=== PATIENT | male | born 1955 | race Caucasian/White ===

== ENCOUNTER 2016-11-08 07:36 | Emergency (ER) | payer OTHER ==
[~2016-11-08] VITALS: Ht 176.5 cm; Wt 135.0 kg
[~2016-11-08 07:36] MED LIST: ASA325 PO; ASCO125T PO; FURO20TA PO; MULT-1007 PO; ZES20T PO
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
[2016-11-08 08:00] LABS: BASOPHILS % (AUTO) 0.8 % (0-3); EOSINOPHILS % (AUTO) 1.7 % (0-5); MONOCYTES % (AUTO) 6.9 % (4-12); Mean Corpuscular Hemoglobin 29.3 pg (27.0-35.0); Mean Corpuscular Volume 85.1 fL (81-100); NEUTROPHILS % (AUTO) 60.5 % (40-74); Platelet Count 184 bil/L (150-400)
[2016-11-08 08:05] VITALS: BP 121/71; PULSE 77; RESP 24; O2SAT 95
[2016-11-08 08:17] LABS: INR 1.12 ratio
[2016-11-08] MEDS ORDERED: oxyCODONE-Acetamin 5-325 mg Tablet PO ONE (08:20)
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
[2016-11-08] MEDS ORDERED: OXYC-474 PO (09:25)
[2016-11-08 09:42] VITALS: BP 121/62; PULSE 79; RESP 16
== END 2016-11-08 09:43 | disposition home or self-care (01) ==
LOC: EDBD 07:36 → SED 07:36 → EDUNIT# 07:36 → SED 09:43
DX: S20.219A Contusion of unspecified front wall of thorax, initial encounter (principal); S27.329A Contusion of lung, unspecified, initial encounter; V22.4XXA Motorcycle driver injured in collision with two- or three-wheeled motor vehicle in traffic accident, initial encounter; Y93.89 Activity, other specified; Y99.8 Other external cause status; Y92.410 Unspecified street and highway as the place of occurrence of the external cause; I10 Essential (primary) hypertension; I48.91 Unspecified atrial fibrillation; I50.9 Heart failure, unspecified; Z95.0 Presence of cardiac pacemaker; Z79.82 Long term (current) use of aspirin
CPT/HCPCS: 36415; 71020; 71100; 72072; 80053; 85025; 85610; 85730; 86850; 99285; G0390